=== PATIENT | female | born 1940 | race Two or more races ===

== ENCOUNTER 2024-10-25 15:41 | Inpatient (IN) | payer MEDICARE, BC ==
[~2024-10-25] VITALS: Ht 162.6 cm; Wt 66.6 kg
[2024-10-25 16:17] VITALS: BP 150/95; PULSE 84; RESP 16; TEMP 98.9; O2SAT 98
[2024-10-25] MEDS ORDERED: IBAN1TAB2 PO (19:08)
[2024-10-25] MEDS ORDERED: [UNRECOGNIZED DRUG - CODE] PO (19:08)
[2024-10-25] MEDS ORDERED: MID10T PO (19:08)
[2024-10-25] MEDS ORDERED: NIFE10CA52 PO (19:08)
[2024-10-25] MEDS ORDERED: VALS40TA2 PO (19:08)
[2024-10-25] MEDS ORDERED: CLOP75TA28 PO (19:08)
[2024-10-25] MEDS ORDERED: ROSU20TA14 PO (19:08)
[2024-10-25] MEDS ORDERED: NITROGLYCERIN 0.4 MG SL TAB SL PRN (19:45)
[2024-10-25] MEDS ORDERED: MORPHINE SULFATE INJ 2 MG/ml SYRG IV PRN (19:45)
[2024-10-25 20:00] VITALS: PULSE 70; RESP 17; O2SAT 93
[2024-10-25 21:00] VITALS: BP 154/81; PULSE 78; RESP 17; TEMP 98.2; O2SAT 93
[2024-10-25 21:26] LABS: Hematocrit 40.7 % (36.0-46.0); Hemoglobin 14.0 g/dL (12.2-16.2); Mean Corpuscular Hemoglobin 32.4 pg (28.0-32.0); Mean Corpuscular Volume 94.1 fL (80.0-100.0); Nucleated Red Blood Cells % 0.1 %
[2024-10-25] MEDS: VALSARTAN 80 MG TAB PO SCH (21:30)
[2024-10-25 21:38] LABS: Alanine Aminotransferase 17 U/L (7-40); Alkaline Phosphatase 85 U/L (46-116); Calcium 9.6 mg/dL (8.7-10.4); Carbon Dioxide 23 mmol/L (20-31); Chloride 105 mmol/L (98-107)
[2024-10-25 21:39] LABS: Albumin 4.0 g/dL (3.2-4.8); Anion Gap 10 (5-15); BUN/Creatinine Ratio 11.4 (10.0-20.0); Bilirubin, Total 0.7 mg/dL (0.2-1.0); Blood Urea Nitrogen 14 mg/dL (9-23); Potassium 3.8 mmol/L (3.5-5.1); Sodium 138 mmol/L (136-145); Total Protein 6.6 g/dL (5.7-8.2)
[2024-10-25 22:03] LABS: Glucose 180 mg/dL (74-106)
[2024-10-25] MEDS: SOD CHL 0.45% 1,000 ML IV SCH (22:30)
[2024-10-25] MEDS: guaiFENesin-DM 100/10mg/5ml SYR PO PRN (22:30)
--- NOTE | 2024-10-25 23:00 | DVHHP2 ---
Admitting Diagnosis: Right lower lobe pneumonitis and febrile illness Acute asthmatic bronchitis Moderately severe hypovolemia Uncontrolled hypertension History of Present Illness 84-year-old elderly white lady with known history of hypertensive CAD, SVT, Osteoporosis and DJD of LS spine-status post posterior spinal canal decompression surgery is Directly admitted for further eval and management of severe sore throat started around october 20 2024, progressed into productive cough, shortness of breath accompanied by Low-grade fever up to 101 degree F and profound generalized weakness over next 3 days Recommended patient to have outpatient assessment at my office. She appeared to be Moderate to severely hypovolemic, febrile with s/s suggestive of RLL pneumonitis. I recommended patient to receive hospitalization. Following my case discussion with Ms. Malik, supervisor toy assembly admitted patient to [facility] telemetry floor For IV hydration, IV antibiotics Patient Family History: FH: heart failure G8 MOTHER FH: multiple myeloma G8 FATHER Allergies: Coded Allergies: Codeine (Verified Allergy, Unknown, 10/25/24) Home Meds Active Scripts Promethazine-Dm (Promethazine Dm 6.25-15 mg/5Ml) 1 Su Su, 1 SU PO Q6HPRN PRN for 7 Days, #120 ML Hold if drowsy Do not drink/drive after it Prov:ALDAIR GUILLERMO MD 10/29/24 Cefuroxime Axetil (Cefuroxime Axetil) 500 Mg Tab, 1 TAB PO BID, #10 TAB Prov:ALDAIR GUILLERMO MD 10/29/24 Valsartan (Valsartan) 160 Mg Tab, 160 MG PO BID, #100 TAB Hold if SBP <120, Report to PMD if angioedema of lips,or persistent dry cough at evening hrs Prov:ALDAIR GUILLERMO MD 10/29/24 Amlodipine Besylate (NORVASC TABLET) 5 Mg Tb, 2.5 MG PO BID for 50 Days, #100 TAB Hold if SBP <125, HR >125/min Prov:ALDIAR GUILLERMO MD 10/29/24 Reported Medications Ibandronate Sodium (IBANDRONATE SODIUM) 150 Mg Tab, 150 MG PO UD, TAB 10/25/24 Nifedipine (PROCARDIA CAPSULE) 10 Mg Cp, 10 MG PO PRN, CAP 10/25/24 Rosuvastatin Calcium (Crestor) 20 Mg Tab, 20 MG PO DAILY, TAB 10/25/24 Clopidogrel Bisulfate (Plavix) 75 Mg Tab, 75 MG PO DAILY, TAB 10/25/24 Midodrine HCl (Midodrine HCl) 10 Mg Tab, 10 MG PO TID, TAB 10/25/24 Rutin (Rutin) 50 Mg Tab, 500 MG PO DAILY, TAB 10/25/24 Valsartan (Diovan) 40 Mg Tab, 40 MG PO PRN for blood pressure, TAB 10/25/24 Current Medications Current Medications Medications (Trade) Dose Ordered Sig/Jami Route PRN Reason Start Time Stop Time Status Last Admin Amlodipine Besylate (Norvasc Tablet) 2.5 mg BID PO 10/29/24 10:00 10/29/24 09:13 Vital Signs Vital Signs Date Time Temp Pulse Resp B/P (MAP) Pulse Ox O2 Delivery O2 Flow Rate FiO2 10/29/24 12:35 97.7 78 16 119/61 (80) 91 97.7 10/29/24 08:00 Room Air* 0 21 SEPSIS Sepsis Screen Physician Orders Sod Chl 0.45% (Sodium Chloride 0.45% Via (10/25/24 19:45) Admit (10/25/24 19:32) Nitroglycerin Sublingual (Ntrostat Subli (10/25/24 19:45) Morphine Sulfate Injection (10/25/24 19:45) Stat Ekg For Chest Pain (10/25/24 19:32) Notify Md Of Changes From Base (10/25/24 19:32) Yield Clerk For 24 Hours (10/25/24 19:32) Emergency Dysrhythmia Protocol (10/25/24 19:32) Rhythm Strips Once Every Shift (10/25/24 19:32) Oxygen By Nasal Cannula (10/25/24 19:32) Ceftriaxone 2gm/50ml D5w (Rocephin 2gm/5 (10/26/24 10:00) Guaifenesin-Dextromet Liquid (Robitussin (10/25/24 19:45) Midodrine Tablet (Proamatine Tablet) (10/26/24 06:00) Full Code (10/25/24 19:37) 2 Gm Sodium Diet (10/26/24 Breakfast) Clopidogrel Bisulfate (Plavix) (10/26/24 10:00) Blood Culture (10/25/24 19:40) Notify Md If Abnormal Vs (10/25/24 19:40) Pantoprazole (Protonix) (10/26/24 10:00) Valsartan (Diovan) (10/26/24 07:00) Chest Two Views Routine (10/26/24 07:55) 1 View Decubitus Chest Xray (10/28/24 00:06) Amlodipine Tablet (Norvasc Tablet) (10/29/24 10:00) Chest Xray 1 View (10/29/24 07:00) Discharge (10/29/24 15:41) Vital Signs Date Time Temp Pulse Resp B/P (MAP) Pulse Ox O2 Delivery O2 Flow Rate FiO2 10/29/24 12:35 97.7 78 16 119/61 (80) 91 97.7 10/29/24 09:13 146/64 10/29/24 09:13 146/64 10/29/24 08:54 97.7 61 16 141/70 (93) 93 97.7 10/29/24 08:00 Room Air* 0 21 10/29/24 08:00 67 10/29/24 05:00 98.9 83 20 135/67 (89) 95 98.9 10/29/24 01:27 173/87 10/29/24 01:00 99.0 89 18 173/87 (115) 96 99.0 10/28/24 21:39 146/75 10/28/24 21:00 96.3 95 19 146/75 (98) 94 96.3 10/28/24 20:00 89 10/28/24 19:44 Room Air* 0 21 10/28/24 17:56 158/102 (120) 10/28/24 17:14 98.4 83 20 186/93 (124) 96 98.4 10/28/24 16:35 169/85 10/28/24 12:59 98.1 72 20 169/85 (113) 97 98.1 10/28/24 08:41 174/93 10/28/24 08:33 98.3 74 20 174/93 (120) 97 98.3 10/28/24 08:00 104 10/28/24 07:55 Room Air* 0 21 10/28/24 05:00 98.0 71 16 169/90 (116) 95 98.0 10/28/24 01:00 97.9 81 18 169/94 (119) 96 97.9 10/27/24 21:33 155/87 10/27/24 21:00 98.3 71 20 155/87 (109) 93 98.3 10/27/24 20:00 20 99 Room Air* 0 21 10/27/24 20:00 87 10/27/24 17:50 98.2 66 20 167/64 (98) 93 98.2 10/27/24 13:29 98.0 72 20 125/59 (81) 94 98.0 10/27/24 10:18 129/74 10/27/24 09:01 97.7 63 20 129/74 (92) 99 97.7 10/27/24 08:00 63 20 99 Room Air* 0 21 10/27/24 08:00 61 Laboratory Tests Test 10/25/24 21:01 10/26/24 05:08 White Blood Count 5.0 10^3/uL (4.4-10.8) 4.2 10^3/uL (4.4-10.8) L Medications Medications Dose Ordered Sig/Jami Route Start Time Stop Time Status Last Admin Dose Admin Amlodipine Besylate 2.5 mg BID PO 10/29/24 10:00 10/29/24 09:13 2.5 MG Results Labs Test 10/26/24 05:08 10/25/24 23:10 Range/Units White Blood Count 4.2 L 4.4-10.8 10^3/uL Red Blood Count 4.06 4.0-5.20 10^6/uL Hemoglobin 13.2 12.2-16.2 g/dL Hematocrit 38.3 36.0-46.0 % Mean Corpuscular Volume 94.3 80.0-100.0 fL Mean Corpuscular Hemoglobin 32.5 H 28.0-32.0 pg Mean Corpuscular Hemoglobin Concent 34.5 32.0-36.0 g/dL Red Cell Distribution Width 14.2 11.8-14.3 % Platelet Count 142 140-450 10^3/uL Mean Platelet Volume 8.7 6.9-10.8 fL Neutrophils (%) (Auto) 43.5 37.0-80.0 % Lymphocytes (%) (Auto) 33.6 10.0-50.0 % Monocytes (%) (Auto) 14.9 H 0.0-12.0 % Eosinophils (%) (Auto) 7.5 H 0.0-7.0 % Basophils (%) (Auto) 0.5 0.0-2.0 % Neutrophils # (Auto) 1.8 1.6-8.6 10 ^3/uL Lymphocytes # (Auto) 1.4 0.4-5.4 10 ^3/uL Monocytes # (Auto) 0.6 0-1.3 10 ^3/uL Eosinophils # (Auto) 0.3 0-0.8 10 ^3/uL Basophils # (Auto) 0 0-0.2 10 ^3/uL Nucleated Red Blood Cells 0.0 % Sodium Level 142 136-145 mmol/L Potassium Level 3.8 3.5-5.1 mmol/L Chloride Level 108 H 98-107 mmol/L Carbon Dioxide Level 25 20-31 mmol/L Anion Gap 9 5-15 Blood Urea Nitrogen 19 9-23 mg/dL Creatinine 1.19 H 0.550-1.02 mg/dL Glomerular Filtration Rate Calc 45 >90 mL/min BUN/Creatinine Ratio 16.0 10.0-20.0 Serum Glucose 78 74-106 mg/dL Calcium Level 9.2 8.7-10.4 mg/dL Total Bilirubin 0.5 0.2-1.0 mg/dL Aspartate Amino Transferase (AST) 27 13-40 U/L Alanine Aminotransferase (ALT) 16 7-40 U/L Alkaline Phosphatase 82 46-116 U/L Total Protein 6.1 5.7-8.2 g/dL Albumin 3.9 3.2-4.8 g/dL SARS-CoV-2 Antigen (Rapid) Negative NEGATIVE Microbiology Date/Time Source Procedure Growth Status 10/26/24 06:30 Sputum Expectorated Sputum Gram Stain - Final Complete 10/26/24 06:30 Sputum Expectorated Sputum Respiratory Culture - Final Complete 10/25/24 21:01 Blood Blood Culture - Preliminary NO GROWTH AFTER 72 HOURS OF INCUBATION. 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
[2024-10-26] VITALS (9 sets, daily range): BP systolic 126–191; BP diastolic 77–102; PULSE 65–94; RESP 17–20; TEMP 97.4–98.5; O2SAT 93–97
[2024-10-26 00:21] LABS: COVID19 ANTIGEN SOFIA FIA NEGATIVE (NEGATIVE)
[2024-10-26] MEDS: MIDODRINE HCL 10 MG TAB PO SCH (05:41)
[2024-10-26] MEDS: VALSARTAN 80 MG TAB PO SCH (06:33)
[2024-10-26 06:47] LABS: Hematocrit 38.3 % (36.0-46.0); Hemoglobin 13.2 g/dL (12.2-16.2); Mean Corpuscular Hemoglobin 32.5 pg (28.0-32.0); Mean Corpuscular Volume 94.3 fL (80.0-100.0); Nucleated Red Blood Cells % 0.0 %
[2024-10-26 07:00] LABS: Alanine Aminotransferase 16 U/L (7-40); Alkaline Phosphatase 82 U/L (46-116); Anion Gap 9 (5-15); BUN/Creatinine Ratio 16.0 (10.0-20.0); Blood Urea Nitrogen 19 mg/dL (9-23); Calcium 9.2 mg/dL (8.7-10.4); Carbon Dioxide 25 mmol/L (20-31); Glucose 78 mg/dL (74-106); Potassium 3.8 mmol/L (3.5-5.1); Sodium 142 mmol/L (136-145); Total Protein 6.1 g/dL (5.7-8.2)
[2024-10-26 07:01] LABS: Albumin 3.9 g/dL (3.2-4.8)
[2024-10-26 07:02] LABS: Bilirubin, Total 0.5 mg/dL (0.2-1.0)
[2024-10-26 07:10] LABS: Chloride 108 mmol/L (98-107)
--- NOTE | 2024-10-26 09:36 | DVH ---
EXAM: XY CHEST TWO VIEWS ROUTINE CLINICAL HISTORY: pain; PNEUMONIA COMPARISON: None TECHNIQUE: Frontal and lateral view of the chest was obtained FINDINGS: Lines and Tubes: None Lungs: No focal consolidation. Pleura: No effusion. No pneumothorax. Cardiomediastinal contours: Unremarkable. Atherosclerotic vascular calcifications of the thoracic ao rta are noted. Bones: No acute osseous abnormality. IMPRESSION: No acute cardiopulmonary disease.
[2024-10-26] MEDS: PANTOPRAZOLE 40 MG/10 ML VIAL INJ IV SCH (09:45)
[2024-10-26] MEDS: CLOPIDOGREL BISULFATE 75 MG TAB PO SCH (09:47)
[2024-10-26] MEDS ORDERED: VALSARTAN 80 MG TAB PO SCH (10:00)
--- NOTE | 2024-10-26 18:26 | DVHPN2 ---
Progress Note - Dictate Date Seen: Oct 26, 2024 Subjective Currently being treated for symptoms of chest congestion shortness of breath vital signs Vital Sign Date Time Temp Pulse Resp B/P (MAP) Pulse Ox O2 Delivery O2 Flow Rate FiO2 10/26/24 17:00 97.9 90 18 188/102 (130) 97 97.9 10/26/24 08:00 Room Air* 0 21 Total Intake and Output 10/25/24 10/25/24 10/26/24 15:00 23:00 07:00 Intake Total 0 ml 240 ml Output Total 525 ml Balance 0 ml -285 ml medications Current Medications Medications Dose Ordered Sig/Jami Route Start Time Stop Time Status Last Admin Dose Admin Sodium Chloride 1,000 ml @ 75 mls/hr [id number] IV 10/25/24 19:45 10/25/24 22:30 75 MLS/HR Nitroglycerin 0.4 mg Q5MINP PRN SL 10/25/24 19:45 Morphine Sulfate 2 mg Q30M PRN IV 10/25/24 19:45 Hold Ceftriaxone Sodium/Dextrose 50 ml @ 50 mls/hr DAILY IV 10/26/24 10:00 10/26/24 09:49 50 MLS/HR Guaifenesin/ Dextromethorphan 10 ml Q4HP PRN PO 10/25/24 19:45 10/25/24 22:30 10 ML Midodrine 5 mg TID@0600,1200,1800 PO 10/26/24 06:00 Clopidogrel Bisulfate 75 mg DAILY PO 10/26/24 10:00 10/26/24 09:47 75 MG Pantoprazole Sodium 40 mg DAILY IV 10/26/24 10:00 10/26/24 09:45 40 MG Valsartan 160 mg BID PO 10/26/24 07:00 10/26/24 06:33 160 MG laboratory and microbiology Laboratory Tests 10/26/24 05:08 Test 10/26/24 05:08 Range/Units Serum Glucose 78 74-106 mg/dL Problem List Acute asthmatic bronchitis Moderately severe hypovolemia ALDAIR GUILLERMO MD Oct 26, 2024 18:26
[2024-10-27] VITALS (8 sets, daily range): BP systolic 125–186; BP diastolic 59–101; PULSE 61–87; RESP 16–20; TEMP 97–98.3; O2SAT 93–99
[2024-10-28] VITALS (9 sets, daily range): BP systolic 146–186; BP diastolic 75–102; PULSE 71–104; RESP 16–20; TEMP 96.3–98.4; O2SAT 94–97
--- NOTE | 2024-10-28 00:06 | DVHPN2 ---
Progress Note - Dictate Date Seen: Oct 27, 2024 Subjective Currently being treated for symptoms of chest congestion and uncontrolled hypertension Recommended patient to receive combination of valsartan and beta-libertad vital signs Vital Sign Date Time Temp Pulse Resp B/P (MAP) Pulse Ox O2 Delivery O2 Flow Rate FiO2 10/27/24 21:33 155/87 10/27/24 21:00 98.3 71 20 93 98.3 10/27/24 20:00 Room Air* 0 21 Total Intake and Output 10/27/24 10/27/24 10/28/24 15:00 23:00 07:00 Intake Total 1530 ml 1180 ml Output Total 1200 ml Balance 1530 ml -20 ml medications Current Medications Medications Dose Ordered Sig/Jami Route Start Time Stop Time Status Last Admin Dose Admin Sodium Chloride 1,000 ml @ 75 mls/hr [id number] IV 10/25/24 19:45 10/27/24 11:38 75 MLS/HR Nitroglycerin 0.4 mg Q5MINP PRN SL 10/25/24 19:45 Morphine Sulfate 2 mg Q30M PRN IV 10/25/24 19:45 Hold Ceftriaxone Sodium/Dextrose 50 ml @ 50 mls/hr DAILY IV 10/26/24 10:00 10/27/24 10:14 50 MLS/HR Guaifenesin/ Dextromethorphan 10 ml Q4HP PRN PO 10/25/24 19:45 10/25/24 22:30 10 ML Midodrine 5 mg TID@0600,1200,1800 PO 10/26/24 06:00 Clopidogrel Bisulfate 75 mg DAILY PO 10/26/24 10:00 10/27/24 10:18 75 MG Pantoprazole Sodium 40 mg DAILY IV 10/26/24 10:00 10/27/24 10:14 40 MG Valsartan 160 mg BID PO 10/26/24 07:00 10/27/24 21:33 160 MG laboratory and microbiology Laboratory Tests 10/26/24 05:08 Test 10/26/24 05:08 Range/Units Serum Glucose 78 74-106 mg/dL Problem List Acute asthmatic bronchitis Moderately severe hypovolemia Assessment/Plan Add carvedilol or Bystolic Continue valsartan twice a day ALDAIR GUILLERMO MD Oct 28, 2024 00:06
--- NOTE | 2024-10-28 07:45 | DVH ---
CHEST RADIOGRAPH Indication: RLL pneumonia Technique: Single frontal view of the chest was obtained COMPARISON: XY CHEST TWO VIEWS ROUTINE on DOS: 10/26/24 FINDINGS: Lines and Tubes: None Lungs: Clear Pleura: No effusion. No pneumothorax. Cardiomediastinal contours: Unremarkable Bones: Unremarkable IMPRESSION: No acute disease.
--- NOTE | 2024-10-28 22:26 | DVHPN2 ---
Progress Note - Dictate Date Seen: Oct 28, 2024 Subjective Her follow up chest x-ray compromised with technique Will repeat chest x-ray Currently being treated for symptoms of chest congestion and uncontrolled hypertension Recommended patient to receive combination of valsartan and beta-libertad vital signs Vital Sign Date Time Temp Pulse Resp B/P (MAP) Pulse Ox O2 Delivery O2 Flow Rate FiO2 10/28/24 21:39 146/75 10/28/24 19:44 Room Air* 0 21 10/28/24 17:14 98.4 83 20 96 98.4 Total Intake and Output 10/27/24 10/27/24 10/28/24 15:00 23:00 07:00 Intake Total 1530 ml 1180 ml 400 ml Output Total 1200 ml 3000 ml Balance 1530 ml -20 ml -2600 ml medications Current Medications Medications Dose Ordered Sig/Jami Route Start Time Stop Time Status Last Admin Dose Admin Sodium Chloride 1,000 ml @ 75 mls/hr [id number] IV 10/25/24 19:45 10/28/24 01:05 75 MLS/HR Nitroglycerin 0.4 mg Q5MINP PRN SL 10/25/24 19:45 Morphine Sulfate 2 mg Q30M PRN IV 10/25/24 19:45 Hold Ceftriaxone Sodium/Dextrose 50 ml @ 50 mls/hr DAILY IV 10/26/24 10:00 10/27/24 10:14 50 MLS/HR Guaifenesin/ Dextromethorphan 10 ml Q4HP PRN PO 10/25/24 19:45 10/25/24 22:30 10 ML Midodrine 5 mg TID@0600,1200,1800 PO 10/26/24 06:00 Clopidogrel Bisulfate 75 mg DAILY PO 10/26/24 10:00 10/28/24 08:41 75 MG Pantoprazole Sodium 40 mg DAILY IV 10/26/24 10:00 10/27/24 10:14 40 MG Valsartan 160 mg BID PO 10/26/24 07:00 10/28/24 21:39 160 MG laboratory and microbiology Laboratory Tests 10/26/24 05:08 Test 10/26/24 05:08 Range/Units Serum Glucose 78 74-106 mg/dL Problem List Acute asthmatic bronchitis Moderately severe hypovolemia Assessment/Plan Add carvedilol or Bystolic Continue valsartan twice a day ALDAIR GUILLERMO MD Oct 28, 2024 22:26
[2024-10-29] VITALS (7 sets, daily range): BP systolic 119–173; BP diastolic 61–87; PULSE 61–89; RESP 16–20; TEMP 36.5; O2SAT 91–96
--- NOTE | 2024-10-29 06:38 | DVH ---
CHEST RADIOGRAPH Indication: follow up - R pl effusion Technique: Single frontal view of the chest was obtained COMPARISON: XY 1 VIEW DECUBITUS CHEST XRAY on DOS: 10/28/24, XY CHEST TWO VIEWS ROUTINE on DOS: 5 FINDINGS: Lines and Tubes: None Lungs: Clear Pleura: No effusion. No pneumothorax. Cardiomediastinal contours: Unremarkable. Atherosclerotic vascular calcifications. Bones: Unremarkable IMPRESSION: 1. No acute disease.
[2024-10-29] MEDS ORDERED: VALS1TAB58 PO (15:41)
[2024-10-29] MEDS ORDERED: AML5T PO (15:41)
[2024-10-29] MEDS ORDERED: CEFU500T43 PO (15:41)
[2024-10-29] MEDS ORDERED: PROM1SOL4 PO (15:49)
--- NOTE | 2024-10-29 15:51 | DVHPN2 ---
Progress Note - Dictate Date Seen: Oct 29, 2024 Subjective Her follow up chest x-ray shows no acute disease but resolving pneumonic infiltrate in RLL Will repeat chest x-ray Currently being treated for symptoms of chest congestion and uncontrolled hypertension Recommended patient to receive combination of valsartan and beta-libertad vital signs Vital Sign Date Time Temp Pulse Resp B/P (MAP) Pulse Ox O2 Delivery O2 Flow Rate FiO2 10/29/24 12:35 97.7 78 16 119/61 (80) 91 97.7 10/29/24 08:00 Room Air* 0 21 Total Intake and Output 10/28/24 10/28/24 10/29/24 14:59 22:59 06:59 Intake Total 240 ml 1440 ml 1200 ml Output Total 800 ml 1200 ml Balance 240 ml 640 ml 0 ml medications Current Medications Medications Dose Ordered Sig/Jami Route Start Time Stop Time Status Last Admin Dose Admin Sodium Chloride 1,000 ml @ 75 mls/hr [id number] IV 10/25/24 19:45 10/29/24 02:12 75 MLS/HR Nitroglycerin 0.4 mg Q5MINP PRN SL 10/25/24 19:45 Morphine Sulfate 2 mg Q30M PRN IV 10/25/24 19:45 Hold Ceftriaxone Sodium/Dextrose 50 ml @ 50 mls/hr DAILY IV 10/26/24 10:00 10/29/24 09:14 50 MLS/HR Guaifenesin/ Dextromethorphan 10 ml Q4HP PRN PO 10/25/24 19:45 10/25/24 22:30 10 ML Midodrine 5 mg TID@0600,1200,1800 PO 10/26/24 06:00 Clopidogrel Bisulfate 75 mg DAILY PO 10/26/24 10:00 10/29/24 09:13 75 MG Pantoprazole Sodium 40 mg DAILY IV 10/26/24 10:00 10/29/24 09:12 40 MG Valsartan 160 mg BID PO 10/26/24 07:00 10/29/24 09:13 160 MG Amlodipine Besylate 2.5 mg BID PO 10/29/24 10:00 10/29/24 09:13 2.5 MG laboratory and microbiology Laboratory Tests 10/26/24 05:08 Test 10/26/24 05:08 Range/Units Serum Glucose 78 74-106 mg/dL Problem List Acute asthmatic bronchitis Moderately severe hypovolemia Assessment/Plan Add carvedilol or Bystolic Continue valsartan twice a day ALDAIR GUILLERMO MD Oct 29, 2024 15:51
--- NOTE | 2024-10-29 15:55 | DVHDS2 ---
Discharge Summary Date of Admission Oct 25, 2024 at 19:32 Date of Discharge: Oct 29, 2024 Admitting Diagnosis RLL pneumonitis acute asthmatic bronchitis Moderately severe hypovolemia Uncontrolled hypertension Wounds: None Labs/Diagnostic Data: Laboratory Results Test 10/26/24 05:08 10/25/24 23:10 White Blood Count 4.2 10^3/uL (4.4-10.8) Red Blood Count 4.06 10^6/uL (4.0-5.20) Hemoglobin 13.2 g/dL (12.2-16.2) Hematocrit 38.3 % (36.0-46.0) Mean Corpuscular Volume 94.3 fL (80.0-100.0) Mean Corpuscular Hemoglobin 32.5 pg (28.0-32.0) Mean Corpuscular Hemoglobin Concent 34.5 g/dL (32.0-36.0) Red Cell Distribution Width 14.2 % (11.8-14.3) Platelet Count 142 10^3/uL (140-450) Mean Platelet Volume 8.7 fL (6.9-10.8) Neutrophils (%) (Auto) 43.5 % (37.0-80.0) Lymphocytes (%) (Auto) 33.6 % (10.0-50.0) Monocytes (%) (Auto) 14.9 % (0.0-12.0) Eosinophils (%) (Auto) 7.5 % (0.0-7.0) Basophils (%) (Auto) 0.5 % (0.0-2.0) Neutrophils # (Auto) 1.8 10 ^3/uL (1.6-8.6) Lymphocytes # (Auto) 1.4 10 ^3/uL (0.4-5.4) Monocytes # (Auto) 0.6 10 ^3/uL (0-1.3) Eosinophils # (Auto) 0.3 10 ^3/uL (0-0.8) Basophils # (Auto) 0 10 ^3/uL (0-0.2) Nucleated Red Blood Cells 0.0 % Sodium Level 142 mmol/L (136-145) Potassium Level 3.8 mmol/L (3.5-5.1) Chloride Level 108 mmol/L (98-107) Carbon Dioxide Level 25 mmol/L (20-31) Anion Gap 9 (5-15) Blood Urea Nitrogen 19 mg/dL (9-23) Creatinine 1.19 mg/dL (0.550-1.02) Glomerular Filtration Rate Calc 45 mL/min (>90) BUN/Creatinine Ratio 16.0 (10.0-20.0) Serum Glucose 78 mg/dL (74-106) Calcium Level 9.2 mg/dL (8.7-10.4) Total Bilirubin 0.5 mg/dL (0.2-1.0) Aspartate Amino Transferase (AST) 27 U/L (13-40) Alanine Aminotransferase (ALT) 16 U/L (7-40) Alkaline Phosphatase 82 U/L (46-116) Total Protein 6.1 g/dL (5.7-8.2) Albumin 3.9 g/dL (3.2-4.8) SARS-CoV-2 Antigen (Rapid) Negative (NEGATIVE) Other Laboratory Tests 10/26/24 05:08 Brief Hx & Hospital Course: 84-year-old elderly white lady with known history of hypertensive CAD, SVT, Osteoporosis and DJD of LS spine-status post posterior spinal canal decompression surgery is Directly admitted for further eval and management of severe sore throat started around october 20 2024, progressed into productive cough, shortness of breath accompanied by Low-grade fever up to 101 degree F and profound generalized weakness over next 3 days Recommended patient to have outpatient assessment at my office. She appeared to be Moderate to severely hypovolemic, febrile with s/s suggestive of RLL pneumonitis. I recommended patient to receive hospitalization. Following my case discussion with Ms. Malik, supervisor operations admitted patient to [facility] telemetry floor For IV hydration, IV antibiotics Operations or Procedures IV antibiotics Fluids Education and management of uncontrolled hypertension Condition at Discharge: Good Final Diagnosis/Problems List RLL pneumonitis Acute asthmatic bronchitis Moderate to severe hypovolemia Uncontrolled essential Hypertension Discharge Disposition: Home with Health Services Discharge Instruct/Medications Diet: Consistent carbohydrate, Cardiac 2g Na,low cholest Diet comment: 1800 dang Low Na 2 g, low cholesterol Activity: Light activity Activity comment: Light activity as tolertaed Follow Up/Referral: Dr Octavia Burton in 5 days by Nov 05 Medications: Pl refer to DC Meds Scheduled Amlodipine Besylate (Norvasc Tablet), 2.5 MG PO BID Cefuroxime Axetil (Cefuroxime Axetil), 1 TAB PO BID Clopidogrel Bisulfate (Plavix), 75 MG PO DAILY, (Reported) Ibandronate Sodium (Ibandronate Sodium), 150 MG PO UD, (Reported) Midodrine HCl (Midodrine HCl), 10 MG PO TID, (Reported) Nifedipine (Procardia Capsule), 10 MG PO PRN, (Reported) Rosuvastatin Calcium (Crestor), 20 MG PO DAILY, (Reported) Rutin (Rutin), 500 MG PO DAILY, (Reported) Valsartan (Valsartan), 160 MG PO BID Scheduled PRN Promethazine-Dm (Promethazine Dm 6.25-15 mg/5Ml), 1 SU PO Q6HPRN PRN Valsartan (Diovan), 40 MG PO for blood pressure, (Reported) Discharge Statement: "Patient was advised to return to the ER or call 911 if any headaches, dizziness, shortness of breath, chest pain, abdominal pain, bleeding, fevers, or worsening of medical condition. Patient was counseled about treatment plan, medications, possible side effects, patientverbalized understanding. All questions were answered to the best of my ability. This discharge took greater then 30 minutes in planning, reviewing documentation, counseling the patient, and discussing with other team members." ASSESSMENT ASSESSMENT Assessment RLL pneumonitis Acute asthmatic bronchitis Moderate to severe hypovolemia Uncontrolled essential Hypertension ALDAIR BURTON MD Oct 29, 2024 15:55
== END 2024-10-29 18:20 | disposition home or self-care (01) | DRG 206 ==
LOC: TELE-WESTW 15:41 → UNDOADMIN 15:41 → TELE-WESTW 19:32
PROVIDERS: ADMIT Specialist; ATTEND Specialist
DX: J98.4 Other disorders of lung (principal); J45.909 Unspecified asthma, uncomplicated; E86.1 Hypovolemia; I10 Essential (primary) hypertension; I95.1 Orthostatic hypotension; M47.816 Spondylosis without myelopathy or radiculopathy, lumbar region; Z20.822 Contact with and (suspected) exposure to COVID-19; I25.10 Atherosclerotic heart disease of native coronary artery without angina pectoris; M81.0 Age-related osteoporosis without current pathological fracture; G89.29 Other chronic pain; Z82.49 Family history of ischemic heart disease and other diseases of the circulatory system; Z80.7 Family history of other malignant neoplasms of lymphoid, hematopoietic and related tissues; Z88.5 Allergy status to narcotic agent; Z79.899 Other long term (current) drug therapy
CPT/HCPCS: 36415; 71045; 71046; 80053; 85025; 87040; 87070; 87205; 87426; G0378; J2470